=== PATIENT | female | born 1950 | race Caucasian/White ===

== ENCOUNTER → 2016-10-07 | Outpatient (CLI) | payer MEDICARE, BC | END | disposition home or self-care (01) | LOC: CFH 16:07 | PROVIDERS: ATTEND Internal Medicine | DX: M51.36 Other intervertebral disc degeneration, lumbar region (principal); M12.88 Other specific arthropathies, not elsewhere classified, other specified site; M51.27 Other intervertebral disc displacement, lumbosacral region; M51.26 Other intervertebral disc displacement, lumbar region; M48.07 Spinal stenosis, lumbosacral region; M48.06 Spinal stenosis, lumbar region | CPT/HCPCS: 72148 ==

== ENCOUNTER → 2016-11-08 | Outpatient (CLI) | payer MEDICARE, BC | END | disposition home or self-care (01) | LOC: CFH 09:59 | PROVIDERS: ATTEND Internal Medicine | DX: Z12.31 Encounter for screening mammogram for malignant neoplasm of breast (principal); Z13.820 Encounter for screening for osteoporosis; I65.21 Occlusion and stenosis of right carotid artery; I25.10 Atherosclerotic heart disease of native coronary artery without angina pectoris; N95.9 Unspecified menopausal and perimenopausal disorder; M85.88 Other specified disorders of bone density and structure, other site | CPT/HCPCS: 77063; 77080; 93880; G0202 ==

== ENCOUNTER → 2019-09-10 | Outpatient (CLI) | payer MEDICARE, BC ==
[~2019-09-10] MED LIST: OMNIPAQUE 350 MG/ML, 150 ML BOTTLE ONE; amlodipine
== END | disposition home or self-care (01) ==
LOC: CFH 08:12
PROVIDERS: ATTEND Internal Medicine
DX: N20.0 Calculus of kidney (principal); R31.0 Gross hematuria; M51.36 Other intervertebral disc degeneration, lumbar region
CPT/HCPCS: 74178; 82565; Q9967

== ENCOUNTER 2019-09-14 13:30 | Emergency (ER) | payer MEDICARE, BC ==
[~2019-09-14] VITALS: Ht 157.5 cm; Wt 67.0 kg
--- NOTE | 2019-09-14 13:36 | NUR ---
NA X 1
[2019-09-14] MEDS ORDERED: ONDANSETRON 2MG/ML, 2ML ONE (14:07)
[2019-09-14] MEDS ORDERED: MORPHINE SULFATE 4 MG/ML, 1ML ONE (14:08)
[2019-09-14 14:22] LABS: BASOPHILS # (AUTO) 0.01 x10^3/uL (0-0.1); BASOPHILS % (AUTO) 0 % (0-1); EOSINOPHILS # (AUTO) 0.14 x10^3/uL (0-0.4); EOSINOPHILS % (AUTO) 1 % (1-7); LYMPHOCYTES # (AUTO) 1.38 x10^3/uL (1-3.4); LYMPHOCYTES % (AUTO) 11 % (22-44); MD NO; MEAN CORPUSCULAR HEMOGLOBIN 32.4 pg (27.0-34.8); MEAN CORPUSCULAR HGB CONC 33.4 g/dL (32.4-35.8); MEAN PLATELET VOLUME 9.1 fL (7.4-10.4); MONOCYTES # (AUTO) 0.63 x10^3/uL (0.2-0.8); MONOCYTES % (AUTO) 5 % (2-9); NEUTROPHILS # (AUTO) 10.57 x10^3/uL (1.8-6.8); NEUTROPHILS % (AUTO) 83 % (42-75); PLATELET COUNT 284 x10^3/uL (130-400); RED BLOOD COUNT 4.44 x10^6/uL (3.82-5.3); RED CELL DISTRIBUTION WIDTH 13.9 % (9.6-15.2)
[2019-09-14 14:30] LABS: ALBUMIN 3.6 g/dL (3.4-5.0); ANION GAP 6 mmol/L (5-15); CHLORIDE 107 mmol/L (98-107)
[2019-09-14] MEDS ORDERED: ONDANSETRON 2MG/ML, 2ML IVPush ONE (14:30)
[2019-09-14] MEDS ORDERED: SODIUM CHLORIDE FLUSH 10ML SYR IVF ONE (14:30)
[2019-09-14] MEDS ORDERED: MORPHINE SULFATE 4 MG/ML, 1ML IVPush PRN (14:30)
[2019-09-14] MEDS ORDERED: amlodipine (14:32)
--- NOTE | 2019-09-14 14:32 | NUR ---
LATE NOTE ENTRY DUE TO PT CARE. Pt c/o right flank and RUQ abdominal pain starting today. Pt reports CT scan on revealing 2 kidney stones. Pt reports hematuria. Pt reports nausea adn 10 pain. PIV established. Medications provided per EMAR. Call light within reach. Pt connected to NIBP cuff and continous pulse ox monitor. Bedrails up x 2 for safety measures. Warm blanket provided for comfort measures.
--- NOTE | 2019-09-14 14:33 | NUR ---
Pt aware of need of urine sample.
[2019-09-14 14:34] LABS: ALANINE AMINOTRANSFERASE 24 U/L (12-78); ALKALINE PHOSPHATASE 124 U/L (45-117); BILIRUBIN,TOTAL 0.8 mg/dL (0.2-1.0); CREATININE 0.85 mg/dL (0.55-1.02)
--- NOTE | 2019-09-14 16:27 | NUR ---
UA sent. Called pt's spouse Paulino at [phone] per pt request. All questions answered. NADN. No other needs. Pt states pain is a 1/10 at this time. Relief from medications provided.
[2019-09-14 16:42] LABS: MICROSCOPIC AUTO
[2019-09-14] MEDS ORDERED: CEFTRIAXONE PMX 1GM/50ML 50 ML ONE (16:59)
[2019-09-14] MEDS ORDERED: CEFTRIAXONE PMX 1GM/50ML 50 ML IV ONE (17:00)
--- NOTE | 2019-09-14 18:19 | NUR ---
Patient given discharge instructions and they have confirmed that they understand the instructions. Patient ambulatory with steady gait. Pt left with d/c paperwork, Rx, and all personal belongings. NADN. No needs expressed.
[2019-09-14 18:20] VITALS: BP 133/70
== END 2019-09-14 18:22 | disposition home or self-care (01) ==
LOC: ED 15:28
DX: N10 Acute pyelonephritis (principal)
CPT/HCPCS: 36415; 76700; 80053; 81001; 83690; 85025; 87077; 87086; 87186; 96365; 96375; 99284; J0696; J2270; J2405